=== PATIENT | male | born 1965 | race Caucasian/White ===

== ENCOUNTER 2021-04-02 11:44 | Outpatient (CLI) | payer OTHER | END 2021-04-02 15:14 | disposition home or self-care (01) | LOC: LAB 11:44 | DX: Z01.818 Encounter for other preprocedural examination (principal) ==

== ENCOUNTER → 2021-04-14 11:44 | Outpatient (CLI) | payer OTHER | END | disposition home or self-care (01) | LOC: LAB 11:44 | DX: Z20.828 Contact with and (suspected) exposure to other viral communicable diseases (principal) ==